=== PATIENT | female | born 1965 | race Caucasian/White ===

== ENCOUNTER 2016-12-26 17:03 | Observation (INO) | payer OTHER ==
[~2016-12-26] VITALS: Ht 162.6 cm; Wt 118.0 kg
[~2016-12-26 17:03] MED LIST: ALBI30PE PO; ALPR2TAB2 PO; BENA10TA2 PO; BUPR300T4 PO; BUTA1CAP57 PO; CITA40TA5 PO; INSU100V8 SQ; ISOS20TA58 PO; LEVO100T PO; LEVO120C PO; LEVO150T PO; LISD50CA2 PO; OMEP40CA6 PO; PARI1CAP PO; RIZA10TA20 PO
[2016-12-26] MEDS ORDERED: DULA0.75 SQ (17:21)
[2016-12-26] MEDS ORDERED: CARB200T PO (17:21)
[2016-12-26] MEDS ORDERED: INSU100C5 SQ-INSULIN (17:24)
[2016-12-26] MEDS ORDERED: ONDA4TAB13 SL (17:24)
[2016-12-26] MEDS ORDERED: LEVO80CA PO (17:24)
[2016-12-26] MEDS ORDERED: BREX1TAB PO (17:24)
[2016-12-26 17:45] LABS: BLOOD UREA NITROGEN 25 mg/dL (7-18)
[2016-12-26 18:01] LABS: ACETAMINOPHEN < 2 mcg/mL (10-30)
[2016-12-26 18:52] LABS: DAU SCREEN DISCLAIMER
[2016-12-26 19:06] LABS: BLOOD UREA NITROGEN 26 mg/dL (7-18)
[2016-12-26] MEDS ORDERED: DEXTROSE 4 GM TAB.CHEW PO PRN (20:30)
[2016-12-26] MEDS ORDERED: DEXTROSE 50%, 50ML SYRINGE IVPush PRN (20:30)
[2016-12-26] MEDS ORDERED: QUETIAPINE 25MG TABLET PO PRN (20:30)
[2016-12-26] MEDS ORDERED: GLUCAGON 1 MG IM PRN (20:30)
[2016-12-26] MEDS ORDERED: POLYETHYLENE GLYCOL 17 GM PACKET PO PRN (20:30)
[2016-12-26] MEDS ORDERED: ACETAMINOPHEN 325 MG TABLET PO PRN (20:30)
[2016-12-26] MEDS ORDERED: BISACODYL 10 MG SUPP PR PRN (20:30)
[2016-12-26] MEDS ORDERED: DOCUSATE 100 MG CAPSULE PO PRN (20:30)
[2016-12-26] MEDS: BREXPIPRAZOLE 1 MG PO SCH (21:00)
[2016-12-26] MEDS: SODIUM CHLORIDE FLUSH 10ML SYR IVF SCH (21:00)
[2016-12-26] MEDS: INSULIN ASPART 100 UNITS/ML, PEN SQ-INSULIN SCH (21:00)
[2016-12-26] MEDS: LORazepam 1MG TABLET PO PRN (23:24)
[2016-12-26] MEDS: PARICALCITOL 1 MCG CAPSULE PO SCH (23:24)
[2016-12-26] MEDS: CARBAMAZEPINE 200 MG TABLET PO SCH (23:24)
[2016-12-27 06:03] LABS: ASPARTATE AMINO TRANSFERASE 16 U/L (15-37); BLOOD UREA NITROGEN 26 mg/dL (7-18)
[2016-12-27] MEDS: INSULIN ASPART 100 UNITS/ML, PEN SQ-INSULIN SCH ×4 (07:00→21:02)
[2016-12-27] MEDS ORDERED: INSULIN DETEMIR 100 UNITS/ML, PEN SQ-INSULIN SCH (07:30)
[2016-12-27] MEDS: LEVOTHYROXINE 150 MCG TABLET PO SCH (07:52)
[2016-12-27 07:59] VITALS: BP 131/83
[2016-12-27] MEDS: CARBAMAZEPINE 200 MG TABLET PO SCH ×2 (08:30→20:59)
[2016-12-27] MEDS: SODIUM CHLORIDE FLUSH 10ML SYR IVF SCH (09:00)
[2016-12-27] MEDS: LORazepam 1MG TABLET PO PRN ×2 (15:48→21:09)
[2016-12-27 19:36] VITALS: BP 128/81
[2016-12-27] MEDS: PARICALCITOL 1 MCG CAPSULE PO SCH (20:58)
[2016-12-27] MEDS: BREXPIPRAZOLE 1 MG PO SCH (20:58)
[2016-12-28] MEDS: LEVOTHYROXINE 150 MCG TABLET PO SCH (06:27)
[2016-12-28 07:25] VITALS: BP 148/74
[2016-12-28] MEDS: LORazepam 1MG TABLET PO PRN ×2 (07:50→16:04)
[2016-12-28] MEDS: CARBAMAZEPINE 200 MG TABLET PO SCH (08:39)
[2016-12-28] MEDS: INSULIN ASPART 100 UNITS/ML, PEN SQ-INSULIN SCH ×3 (09:59→16:56)
[2016-12-28] MEDS ORDERED: DIPHENOXYLATE/ATROPINE TABLET PO PRN (10:30)
[2016-12-28] MEDS: SUCRALFATE 1 GM TABLET PO SCH ×2 (11:58→16:04)
[2016-12-28] MEDS ORDERED: ENALAPRIL 2.5MG TABLET PO SCH (12:00)
== END 2016-12-28 18:57 ==
LOC: ED 19:32 → EDIP 20:14 → INTOOBSV 20:14 → SUATTDRO 20:17 → 3E 21:13
DX: R45.851 Suicidal ideations (principal); F41.1 Generalized anxiety disorder; F15.10 Other stimulant abuse, uncomplicated; F43.10 Post-traumatic stress disorder, unspecified; E66.01 Morbid (severe) obesity due to excess calories; E87.5 Hyperkalemia; E03.9 Hypothyroidism, unspecified; F32.9 Major depressive disorder, single episode, unspecified; E11.22 Type 2 diabetes mellitus with diabetic chronic kidney disease; I12.9 Hypertensive chronic kidney disease with stage 1 through stage 4 chronic kidney disease, or unspecified chronic kidney disease; N18.2 Chronic kidney disease, stage 2 (mild); G43.909 Migraine, unspecified, not intractable, without status migrainosus; Z79.4 Long term (current) use of insulin; Z91.19 Patient's noncompliance with other medical treatment and regimen; Z80.7 Family history of other malignant neoplasms of lymphoid, hematopoietic and related tissues; Z80.8 Family history of malignant neoplasm of other organs or systems; Z83.3 Family history of diabetes mellitus
CPT/HCPCS: 36415; 76770; 80048; 80053; 80156; 80307; 80329; 82040; 82962; 84436; 84481; 84702; 85025; 96372; 99285; G0378; J1815; G0480